=== PATIENT | male | born 1980 | race Two or more races ===

== ENCOUNTER 2023-04-02 21:56 | Emergency (ER) | payer OTHER | END 2023-04-02 22:19 | disposition left against medical advice (07) | LOC: ER 21:56 | DX: M79.641 Pain in right hand (principal); Z53.21 Procedure and treatment not carried out due to patient leaving prior to being seen by health care provider ==

== ENCOUNTER 2024-06-11 16:45 | Inpatient (IN) | payer OTHER ==
[~2024-06-11] VITALS: Ht 177.8 cm; Wt 117.2 kg
--- NOTE | 2024-06-11 17:28 | DVH ---
CHEST RADIOGRAPH Indication: cp Technique: Single frontal view of the chest was obtained Comparison: None FINDINGS: Lines and Tubes: None Lungs: No focal consolidation. Mild interstitial prominence. Pleura: No effusion. No pneumothorax. Cardiomediastinal contours: Mild cardiomegaly. Bones: No acute osseous abnormality. IMPRESSION: Mild cardiomegaly with mild pulmonary vascular congestion.
--- NOTE | 2024-06-11 17:37 | ED.PDOC ---
History of Present Illness HPI Comments 43M presents to the ER w/ no prior Hx associated to the c/c of of dizziness. Pt reports that he was getting dizzy when he was walking at [facility] and then started to have CP. Pt notes that he has seen his PCP prior due from having constant dizziness w/ a hemoglobin of 6. Pt states that he has generalized weakness associated w/ ABD pain, black stools for a "couple days". Pt notes that he cannot have a blood transfer due from him being a Jehovah Witness. Quit alcohol use, 2 weeks ago. Denies chills, fever, N/V/D, SOB, CP or other associated symptom's, modifiers, or recent injuries or sick contact at this time. Chief Complaint: Chest Pain Time Seen by MD: 17:00 Primary Care Provider: MICHELLE Torres Notes: Nurses Notes, Medications, Allergies Allergies: Coded Allergies: NO KNOWN ALLERGIES (Unverified , 06/11/24) Information Source: Patient, Emergency Med Personnel Mode of Arrival: EMS Severity: Moderate Timing: Minutes Duration: Since onset, Minutes Prehospital treatment: None Past Medical History PAST MEDICAL HISTORY: Denies Surgical History: Denies all surgeries Family History Family History: Reviewed,noncontributory to illness, Unknown Social History Smoker: Non-Smoker Alcohol: Sober Drugs: Denies Drug Use Lives In: Home Constitutional: denies: chills, diaphoresis, fatigue, fever, malaise, sweats, weakness, others EENTM: denies: blurred vision, double vision, ear bleeding, ear discharge, ear drainage, ear pain, ear ringing, eye pain, eye redness, hearing loss, mouth p ain, mouth swelling, nasal discharge, nose bleeding, nose congestion, nose pain, photophobia, tearing, throat pain, throat swelling, voice changes, others Respiratory: denies: cough, hemoptysis, orthopnea, SOB at rest, shortness of br eath, SOB with excertion, stridor, wheezing, others Cardiovascular: reports: chest pain; denies: dizzy spells, diaphoresis, Dyspnea on exertion, edema, irregular heart beat, left arm pain, lightheadedness, palpitations, PND, syncope, others Gastrointestinal: denies: abdomen distended, abdominal pain, blood streaked con wels, constipated, diarrhea, dysphagia, difficulty swallowing, hematemesis, melena, nausea, poor appetite, poor fluid intake, rectal bleeding, rectal pain, vomiting, others Genitourinary: denies: burning, dysuria, flank pain, frequency, hematuria, incontinence, penile discharge, penile sore, pain, testicle pain, testicle swelling, urgency, others Neurological: reports: dizziness; denies: fainting, headache, left sided numbness, left sided weakness, numbness, paresthesia, pre-existing deficit, right sided numbness, right sided weakness, seizure, speech problems, tingling, tremors, weakness, others Musculoskeletal: denies: back pain, gout, joint pain, joint swelling, muscle pain, muscle stiffness, neck pain, others Integumetry: denies: bruises, change in color, change in hair/nails, dryness, laceration, lesions, lumps, rash, wounds, others Allergic/Immunocompromised: denies: Difficulty Healing, Frequent Infections, Hives, Itching, others Hematologic/Lymphatic: denies: anemia, blood clots, easy bleeding, easy bruising, swollen glands, others Endocrine: denies: excessive hunger, excessive sweating, excessive thirst, excessive urination, flushing, intolerance to cold, intolerance to heat, unexplained weight gain, unexplained weight loss, others Psychiatric: denies: anxiety, bipolar disorder, depression, hopeless, panic dis order, schizophrenia, sleepless, suicidal, others All Other Systems: Reviewed and Negative Physical Exam General Appearance: No Apparent Distress, Normal HEENT: Normal ENT Inspection, Pharynx Normal, TMs Normal Neck: Full Range of Motion, Non-Tender, Normal, Normal Inspection Respiratory: Chest Non-Tender, Lungs Clear, No Accessory Muscle Use, No Respiratory Distress, Normal Breath Sounds Cardiovascular: No Edema, No JVD, No Murmur, No Gallop, Normal Peripheral Pulses, Regular Rate/Rhythm Breast Exam: Deferred Gastrointestinal: No Organomegaly, Non Tender, No Pulsatile Mass, Normal Bowel Sounds, Soft Genitalia: Deferred Pelvic: Deferred Rectal: Deferred Extremities: No calf tenderness, Normal capillary refill, Normal inspection, Normal range of motion, Non-tender, No pedal edema Musculoskeletal : Apperance: Normal Neurologic: Alert, tank pumper panelboard II-XII nml as Tested, No Motor Deficits, Normal Affect, Normal Mood, No Sensory Deficits Cerebellar Function: Normal Reflexes: Normal Skin: Dry, Normal Color, Warm Lymphatic: No Adenopathy Was a procedure done? Was a procedure done?: No Differential Dx Considerations may include: gib, marrow failure, unstable angina, demand related angina, noncardiac chest pain, anxiety X-Ray, Labs, Meds, VS Vital Signs Date Time Temp Pulse Resp B/P (MAP) Pulse Ox O2 Delivery O2 Flow Rate FiO2 06/11/24 17:51 83 16 100 Room Air* 0 21 06/11/24 17:35 98.9 83 16 134/64 (87) 100 98.9 06/11/24 17:35 83 16 100 Room Air 06/11/24 17:05 97.2 86 16 124/72 (89) 99 Lab Test 06/11/24 18:17 06/11/24 17:22 Range/Units Troponin I High Sensitivity < 3 L < 3 L </=54 ng/L White Blood Count 4.4 4.4-10.8 10^3/uL Red Blood Count 3.69 L 4.5-5.90 10^6/uL Hemoglobin 6.8 *L 13.5-17.5 g/dL Hematocrit 23.1 L 41.0-53.0 % Mean Corpuscular Volume 62.8 L 80.0-100.0 fL Mean Corpuscular Hemoglobin 18.4 L 28.0-32.0 pg Mean Corpuscular Hemoglobin Concent 29.3 L 32.0-36.0 g/dL Red Cell Distribution Width 19.1 H 11.8-14.3 % Platelet Count 369 140-450 10^3/uL Mean Platelet Volume 8.7 6.9-10.8 fL Neutrophils (%) (Auto) 53.7 37.0-80.0 % Lymphocytes (%) (Auto) 32.4 10.0-50.0 % Monocytes (%) (Auto) 10.8 0.0-12.0 % Eosinophils (%) (Auto) 1.8 0.0-7.0 % Basophils (%) (Auto) 1.3 0.0-2.0 % Neutrophils # (Auto) 2.3 1.6-8.6 10 ^3/uL Lymphocytes # (Auto) 1.4 0.4-5.4 10 ^3/uL Monocytes # (Auto) 0.5 0-1.3 10 ^3/uL Eosinophils # (Auto) 0.1 0-0.8 10 ^3/uL Basophils # (Auto) 0.1 0-0.2 10 ^3/uL Nucleated Red Blood Cells 0.0 % Platelet Estimate [place] Large Platelets Few Polychromasia Slight Hypochromasia (manual) Moderate Poikilocytosis (manual) Slight Anisocytosis (manual) Slight Microcytosis Moderate Ovalocytes Few Stomatocytes Few Current Medications Medications (Trade) Dose Ordered Sig/Sadie Route Start Time Stop Time Status Last Admin Pantoprazole Sodium (Protonix) 40 mg ONCE ONCE IV 06/11/24 17:15 06/11/24 17:16 DC 06/11/24 17:46 Time of 1ST Reevaluation: 17:30 Reevaluation 1ST: Unchanged Patient Education/Counseling: Diagnosis, Treatment, Prognosis, Need For Follow Up Family Education/Counseling: Diagnosis, Treatment, Prognosis, Need For Follow Up, No Family Present Additional Information - The following tests were ordered, and results were reviewed by me: LAB, CT , EKG - I reviewed and agreed with the following test results read by other provider: CT - I discussed treatments and results with medical personnel and: (consultants, family): [facility] pt is JW and was told his Hg was 6.5 a week ago. he did notice black stool 2 d ays before starting iron therapy. pt now has angina-type chest pain, which may be related to the anemia. his Hg is slightly higher than a week ago, and he does not have active bleed. however, the anemia may be the trigger of the angina. i will consult [facility] regarding their bloodless program and pt will need to be evaluated for the angina. [facility] does not have a bloodless program anymore. we also tried [facility] and [facility], the other 2 facilities [facility] bloodless program, but have not been able to get acceptance. since pt has stable hg from last week, and has no active bleeding, he will be admitted for angina workup, and if bloodless treatment for the anemia is needed, he may be able to get EPO and iron here as well Departure 1 Departure Time of Disposition: 18:13 Impression: Primary Impression: Unstable angina Additional Impression: Anemia Qualified Codes: D50.0 - Iron deficiency anemia secondary to blood loss (chronic) Disposition: ADMITTED INPATIENT Admit to: Tele Condition: Stable Discharged With: Self, Relative Critical Care Note Critical Care Time?: Yes (55 min-critical care time only) Critical care comment: due to concerns for deterioration of patient's condition, the care required my highest level of attention and readiness. i assessed the patient's condition, revieweed relavent documents, communicated with medical personnel, ordered the proper tests and treatments, reassed fro results and response to treatments, spoke to family and consultants and formulated a plan of care Stability Stability form required: No Heart Score Heart Score: Heart Score Response (Comments) Value History Highly Suspicious 2 EKG Normal 0 Age <45 0 Risk Factors No known risk factors 0 Troponin Normal limit 0 Total 2 I personally scribed for MAVERICK TRINH MD ([email or web address]) on 06/11/24 at 17:37. Electronically submitted by Baron Penaloza ([email or web address]). MAVERICK TRINH MD Jun 11, 2024 17:37
[2024-06-11] MEDS: PANTOPRAZOLE 40 MG/10 ML VIAL INJ IV ONE (17:46)
[2024-06-11 17:50] LABS: Eosinophils # (auto) 0.1 10 ^3/uL (0-0.8); Lymphocytes # (auto) 1.4 10 ^3/uL (0.4-5.4); Mean Corpuscular Hemoglobin 18.4 pg (28.0-32.0); Monocytes # (auto) 0.5 10 ^3/uL (0-1.3)
[2024-06-11 17:51] VITALS: PULSE 83; RESP 16; O2SAT 100
[2024-06-11 17:53] LABS: Basophils # (auto) 0.1 10 ^3/uL (0-0.2); Basophils % (auto) 1.3 % (0.0-2.0); Eosinophils % (auto) 1.8 % (0.0-7.0); Hematocrit 23.1 % (41.0-53.0); Lymphocytes % (auto) 32.4 % (10.0-50.0); Mean Corpuscular Hgb Conc. 29.3 g/dL (32.0-36.0); Mean Corpuscular Volume 62.8 fL (80.0-100.0); Monocytes % (auto) 10.8 % (0.0-12.0); Neutrophils # (auto) 2.3 10 ^3/uL (1.6-8.6); Neutrophils % (auto) 53.7 % (37.0-80.0); Platelet Count (auto) 369 10^3/uL (140-450); Red Blood Cells 3.69 10^6/uL (4.5-5.90); Red Cell Distribution Width 19.1 % (11.8-14.3); White Blood Cell 4.4 10^3/uL (4.4-10.8)
[2024-06-11 18:00] LABS: Hemoglobin 6.8 g/dL (13.5-17.5)
[2024-06-11 18:14] LABS: Anisocytosis Slight; Hypochromia Moderate; Polychromasia Slight
[2024-06-11 18:15] LABS: Large Platelets FEW; Ovalocytes FEW; Platelet Estimate Adequa; Stomatocytes Few
--- NOTE | 2024-06-11 18:49 | ECG ---
[facility] Test Date: 2024-06-11 Test Time: 16:48:19 Pat Name: REYES DAVIS Department: ER Room: Gender: M Electrician Manager: SANTI : 1980 Requested By: MAVERICK TRINH Order Number: [id number] Reading MD: Rayo Rocha Measurements Intervals [place] Rate: 80 P: 42 SC: 162 QRS: -43 QRSD: 98 T: 32 QT: 402 QTc: 464 Interpretive Statements Sinus rhythm Left axis deviation Electronically Signed On 06-11-2024 20:00:17 PST by Rayo Rocha Please click the below link to view image of tracing.
[2024-06-11] MEDS ORDERED: ACETAMINOPHEN 325 MG TAB PO PRN (20:15)
[2024-06-11] MEDS ORDERED: ONDANSETRON HCL 4 MG/2 ML VIAL IV PRN (20:15)
[2024-06-11] MEDS: SODIUM CHLORIDE 0.9% 1,000 ML IV SCH (20:26)
[2024-06-11 20:47] LABS: Alanine Aminotransferase 49 U/L (7-40); Albumin 5.2 g/dL (3.2-4.8); Alkaline Phosphatase 65 U/L (46-116); Anion Gap 12 (5-15); Aspartate Aminotransferase 25 U/L (13-40); BUN/Creatinine Ratio 17.6 (10.0-20.0); Bilirubin, Total 0.5 mg/dL (0.2-1.0); Blood Urea Nitrogen 19 mg/dL (9-23); Calcium 10.3 mg/dL (8.7-10.4); Carbon Dioxide 20 mmol/L (20-31); Chloride 107 mmol/L (98-107); Glucose 109 mg/dL (74-106); Potassium 3.8 mmol/L (3.5-5.1); Sodium 139 mmol/L (136-145); Total Protein 7.9 g/dL (5.7-8.2)
--- NOTE | 2024-06-11 21:42 | DVHHP2 ---
History of Present Illness Reason for Visit: Severe anemia History of Present Illness The patient is a 43-year-old male who denies past medical history presented to [facility] ED with complaint of dizziness. Patient reports he has been having dizzy when walking, associated chest pain, generalized weakness, getting worse that prompted this visit. Patient was seen and evaluated in the ED, laboratory data shows WBC 4.4, hemoglobin 6.8, hematocrit 23.1, platelets 369, troponin 3, blood pressure 121/60, heart rate 75, temperature 98.8 F, O2 saturation 97% on room air. Chest x-ray revealing mild cardiomegaly with mild pulmonary vascular congestion. Patient states he is a Jehovah Witness and cannot receive blood products. Patient was started on iron IV, please see medication orders section in the computer. On my assessment, patient denied chest pain, no headache, no dizziness, no diaphoresis, no shortness of breaths, no nausea, no vomiting, no fever, no chills. Patient was admitted for further evaluation and medical management. Past Medical History Denies past medical history Past Surgical History Denies all surgeries Family History Reviewed, noncontributory to the management of this case. Past Social History The patient lives at home, denies smoking, alcohol or illicit drugs abuse. Review of Systems Constitutional: Yes: Weakness; No: Fever, Chills, Sweats, Malaise, Other Eyes: No: Pain, Vision change, Conjunctivae inflammation, Eyelid inflammation, Other, Redness ENT: No: Ear pain, Ear discharge, Nose pain, Nose discharge, Nose congestion, Mouth pain, Mouth swelling, Throat pain, Throat swelling, Other Respiratory: No: Cough, Dry, Shortness of breath, SOB with excertion, Wheezing, Hemoptysis, Pleuritic Pain, Sputum, Wheezing, Other Cardiovascular: Chest Pain; No: Palpitations, Orthopnea, Paroxysmal Noc. Dyspnea, Edema, Lt Headedness, Other Gastrointestinal: No: Nausea, Vomiting, Abdominal Pain, Diarrhea, Constipation, Melena, Hematochezia, Other Genitourinary: No Dysuria, No Frequency, No Incontinence, No Hematuria, No Retention, No Other Musculoskeletal: No: other, neck pain, shoulder pain, arm pain, back pain, hand pain, leg pain, foot pain Skin: No: Rash, Lesions, Jaundice, Bruising, Other Neurological: Other (Dizziness); No: Weakness, Numbness, Incoordination, Change in speech, Confusion, Seizures Allergies: Coded Allergies: NO KNOWN ALLERGIES (Unverified , 06/11/24) Medications Current Medications Medications Dose Ordered Sig/Sadie Route Start Time Stop Time Status Last Admin Dose Admin Pantoprazole Sodium 40 mg DAILY IV 06/12/24 10:00 Aspirin 81 mg DAILY PO 06/12/24 10:00 Sodium Chloride 1,000 ml @ 60 mls/hr [id number] IV 06/11/24 20:15 06/11/24 20:26 60 MLS/HR Acetaminophen/ Hydrocodone Bitart 1 tab Q4HP PRN PO 06/11/24 20:15 Ondansetron HCl 4 mg Q4HP PRN IV 06/11/24 20:15 Docusate Sodium 100 mg BIDPRN PRN PO 06/11/24 20:15 Acetaminophen 650 mg Q6HP PRN PO 06/11/24 20:15 Morphine Sulfate 2 mg Q4HPRN PRN IV 06/11/24 20:15 Exam Vital Signs Vital Signs Date Time Temp Pulse Resp B/P (MAP) Pulse Ox O2 Delivery O2 Flow Rate FiO2 06/11/24 20:00 80 06/11/24 20:00 98.5 10 121/60 (80) 97 98.5 06/11/24 17:51 Room Air* 0 21 General Appearance: Alert, Oriented X3, Cooperative, No acute distress HEENT: Atraumatic, PERRLA, EOMI, Mucous membr. moist/pink Respiratory: Clear to auscultation, Normal air movement Cardiovascular: Regular rate, Normal S1, Normal S2, No murmurs Abdominal: Normal bowel sounds, Soft, No tenderness, No hepatospenomegaly, No masses Extremities: No clubbing, No cyanosis, No edema, Normal pulses, No tenderness/swelling Skin: No rashes, No breakdown, No significant lesion Neuro: Normal gait, Normal speech, Strength at 5/5 X4 ext, Normal tone, Sensation intact, Cranial nerves 3-12 NL, Reflexes 2+ Psych/Mental Status: Mental status NL, Mood NL Labs/Xrays Labs Test 06/11/24 18:17 06/11/24 17:22 Range/Units Troponin I High Sensitivity < 3 L </=54 ng/L White Blood Count 4.4 4.4-10.8 10^3/uL Red Blood Count 3.69 L 4.5-5.90 10^6/uL Hemoglobin 6.8 *L 13.5-17.5 g/dL Hematocrit 23.1 L 41.0-53.0 % Mean Corpuscular Volume 62.8 L 80.0-100.0 fL Mean Corpuscular Hemoglobin 18.4 L 28.0-32.0 pg Mean Corpuscular Hemoglobin Concent 29.3 L 32.0-36.0 g/dL Red Cell Distribution Width 19.1 H 11.8-14.3 % Platelet Count 369 140-450 10^3/uL Mean Platelet Volume 8.7 6.9-10.8 fL Neutrophils (%) (Auto) 53.7 37.0-80.0 % Lymphocytes (%) (Auto) 32.4 10.0-50.0 % Monocytes (%) (Auto) 10.8 0.0-12.0 % Eosinophils (%) (Auto) 1.8 0.0-7.0 % Basophils (%) (Auto) 1.3 0.0-2.0 % Neutrophils # (Auto) 2.3 1.6-8.6 10 ^3/uL Lymphocytes # (Auto) 1.4 0.4-5.4 10 ^3/uL Monocytes # (Auto) 0.5 0-1.3 10 ^3/uL Eosinophils # (Auto) 0.1 0-0.8 10 ^3/uL Basophils # (Auto) 0.1 0-0.2 10 ^3/uL Nucleated Red Blood Cells 0.0 % Platelet Estimate [place] Large Platelets Few Polychromasia Slight Hypochromasia (manual) Moderate Poikilocytosis (manual) Slight Anisocytosis (manual) Slight Microcytosis Moderate Ovalocytes Few Stomatocytes Few Sodium Level 139 136-145 mmol/L Potassium Level 3.8 3.5-5.1 mmol/L Chloride Level 107 98-107 mmol/L Carbon Dioxide Level 20 20-31 mmol/L Anion Gap 12 5-15 Blood Urea Nitrogen 19 9-23 mg/dL Creatinine 1.08 0.700-1.30 mg/dL Glomerular Filtration Rate Calc 88 >90 mL/min BUN/Creatinine Ratio 17.6 10.0-20.0 Serum Glucose 109 H 74-106 mg/dL Calcium Level 10.3 8.7-10.4 mg/dL Total Bilirubin 0.5 0.2-1.0 mg/dL Aspartate Amino Transferase (AST) 25 13-40 U/L Alanine Aminotransferase (ALT) 49 H 7-40 U/L Alkaline Phosphatase 65 46-116 U/L Total Protein 7.9 5.7-8.2 g/dL Albumin 5.2 H 3.2-4.8 g/dL PATIENT: REYES DAVIS ACCT: [id number] UNIT: [id number] : 1980 LOC: ER ROOM / BED: / AGE / SEX: 43 / M ADM STATUS: REG ER SERVICE [id number] ORDERING PHYSICIAN: MAVERICK TRINH MD PROCEDURE(s): CXRP - CHEST PORTABLE REASON: cp ORDER NUMBER(s): [id number], ACCESSION NUMBER(s): [id number] CHEST RADIOGRAPH Indication: cp Technique: Single frontal view of the chest was obtained Comparison: None FINDINGS: Lines and Tubes: None Lungs: No focal consolidation. Mild interstitial prominence. Pleura: No effusion. No pneumothorax. Cardiomediastinal contours: Mild cardiomegaly. Bones: No acute osseous abnormality. IMPRESSION: Mild cardiomegaly with mild pulmonary vascular congestion. Assessment/Plan Assessment/Plan Severe anemia Generalized weakness Unstable angina Iron deficiency anemia secondary to blood loss (chronic) Plan 1. Admit to telemetry unit 2. Breathing treatment 3. Pain control management 4. Management of fluids and electrolytes 5. Consultation for hospitalist 6. Diagnostic tests chest x-ray 7. DVT prophylaxis on SCDs 8. Repeat labs CBC, CMP in a.m. 9. Continue with current medical management 10. Treatment plan discussed with patient and RN. Patient verbalized understanding. Plan discussed with: Patient, Other (RN) My Orders Orders - SEJAL MEZA DNP Procedure Category Date Status Time Type And Screen BBK 06/11/24 In Process 20:14 Pantoprazole PHA 06/12/24 In Process (Protonix) 10:00 Aspirin Tablet PHA 06/12/24 In Process 10:00 Allergies AMA 06/11/24 In Process 20:14 Code Status CODE 06/11/24 Transmitted 20:14 Sodium Chloride 0.9% PHA 06/11/24 In Process 20:15 Oxygen Per Hour RT 06/11/24 Transmitted 20:14 Hydrocodone-Acet PHA 06/11/24 In Process 5/325mg Tab ([place] 20:15 Ondansetron Hcl PHA 06/11/24 In Process (Zofran) 20:15 Docusate Sodium PHA 06/11/24 In Process Capsule (Colace 20:15 Complete Blood Count LAB 06/12/24 Verified 04:00 Comprehensive LAB 06/12/24 Verified Metabolic Panel 04:00 Cardiac DIET 06/12/24 Transmitted Diet-2gna,Lofat,Lochol Breakfast Condition: Serious AMA 06/11/24 In Process 20:14 Acetaminophen Tablet PHA 06/11/24 In Process (Tylenol Tablet) 20:15 Bedrest With Bathroom AMA 06/11/24 In Process Privileg 20:14 Morphine Sulfate PHA 06/11/24 In Process Injection 20:15 Sequential AMA 06/11/24 In Process Compression Device Problem List: (1) Severe anemia (2) Generalized weakness (3) Unstable angina (4) Iron deficiency anemia secondary to blood loss (chronic) Date of Service: Jun 11, 2024 Billing Provider: SEJAL MEZA DNP Common Visit Codes: [id number] INP/OBS CARE (HIGH) SEJAL MEZA DNP Jun 11, 2024 21:42
[2024-06-11] MEDS ORDERED: MORPHINE SULFATE INJ 2 MG/ml SYRG IV PRN (21:45)
[2024-06-11] MEDS ORDERED: NITROGLYCERIN 0.4 MG SL TAB SL PRN (21:45)
[2024-06-11 22:07] VITALS: PULSE 80; RESP 12; O2SAT 99
[2024-06-12] VITALS (8 sets, daily range): BP systolic 104–146; BP diastolic 57–78; PULSE 61–81; RESP 16–20; TEMP 97.5–98.8; O2SAT 97–100
[2024-06-12 04:18] LABS: Eosinophils # (auto) 0.1 10 ^3/uL (0-0.8); Lymphocytes % (auto) 34.4 % (10.0-50.0); Monocytes # (auto) 0.5 10 ^3/uL (0-1.3); Neutrophils % (auto) 50.2 % (37.0-80.0); Nucleated Red Blood Cells % 0.3 %; White Blood Cell 3.9 10^3/uL (4.4-10.8)
[2024-06-12 04:23] LABS: Basophils # (auto) 0.1 10 ^3/uL (0-0.2); Basophils % (auto) 1.5 % (0.0-2.0); Lymphocytes # (auto) 1.3 10 ^3/uL (0.4-5.4); Mean Corpuscular Hemoglobin 18.4 pg (28.0-32.0); Mean Corpuscular Hgb Conc. 28.8 g/dL (32.0-36.0); Mean Corpuscular Volume 63.7 fL (80.0-100.0); Monocytes % (auto) 11.9 % (0.0-12.0); Platelet Count (auto) 297 10^3/uL (140-450); Red Blood Cells 3.76 10^6/uL (4.5-5.90); Red Cell Distribution Width 19.2 % (11.8-14.3)
[2024-06-12 04:27] LABS: Hemoglobin 6.9 g/dL (13.5-17.5)
[2024-06-12 04:37] LABS: Alkaline Phosphatase 58 U/L (46-116); Anion Gap 9 (5-15); Aspartate Aminotransferase 31 U/L (13-40); BUN/Creatinine Ratio 15.2 (10.0-20.0); Blood Urea Nitrogen 15 mg/dL (9-23); Calcium 9.8 mg/dL (8.7-10.4); Carbon Dioxide 21 mmol/L (20-31); Potassium 4.2 mmol/L (3.5-5.1); Sodium 138 mmol/L (136-145); Total Protein 7.5 g/dL (5.7-8.2)
[2024-06-12 04:38] LABS: Alanine Aminotransferase 42 U/L (7-40); Albumin 4.8 g/dL (3.2-4.8); Chloride 108 mmol/L (98-107); Glucose 113 mg/dL (74-106)
[2024-06-12 04:39] LABS: Bilirubin, Total 0.5 mg/dL (0.2-1.0)
[2024-06-12 05:22] LABS: Hypochromia Marked; Platelet Estimate Adequate; Polychromasia Slight
[2024-06-12] MEDS ORDERED: ERGO1CAP12 PO (05:28)
[2024-06-12] MEDS ORDERED: FERR325T20 PO (05:28)
[2024-06-12] MEDS: ASPirin 81 mg TAB PO SCH (09:11)
[2024-06-12] MEDS: PANTOPRAZOLE 40 MG/10 ML VIAL INJ IV SCH (09:11)
[2024-06-12] MEDS: IRON SUCROSE COMPLEX 110 ML IV SCH (12:15)
[2024-06-12] MEDS: MORPHINE SULFATE INJ 2 MG/ml SYRG IV PRN (12:41)
[2024-06-12] MEDS: DOCUSATE SOD 100 MG CAP PO PRN (19:40)
--- NOTE | 2024-06-12 20:16 | DVHPN2 ---
Subjective in bed resting Changes from previous H/P or p: No Changes Eyes: No Pain, No Vision change, No Conjunctivae inflammation, No Eyelid inflammation, No Other, No Redness ENT: No Ear pain, No Ear discharge, No Nose pain, No Nose discharge, No Nose congestion, No Mouth pain, No Mouth swelling, No Throat pain, No Throat swelling, No Other Cardiovascular: Chest Pain; No Palpitations, No Orthopnea, No Paroxysmal Noc. Dyspnea, No Edema, No Lt Headedness, No Other Respiratory: No Cough, No Dry, No Shortness of breath, No SOB with excertion, No Wheezing, No Hemoptysis, No Pleuritic Pain, No Sputum, No Other Gastrointestinal: No Nausea, No Vomiting, No Abdominal Pain, No Diarrhea, No Constipation, No Melena, No Hematochezia, No Other Genitourinary: No Dysuria, No Frequency, No Incontinence, No Hematuria, No Retention, No Other Musculoskeletal: No other, No neck pain, No shoulder pain, No arm pain, No back pain, No hand pain, No leg pain, No foot pain Skin: No Rash, No Lesions, No Jaundice, No Bruising, No Other Objective Vitals Vital Signs Date Time Temp Pulse Resp B/P (MAP) Pulse Ox O2 Delivery O2 Flow Rate FiO2 06/12/24 17:00 97.8 61 18 124/74 (91) 97 97.8 06/12/24 08:00 Room Air* 0 21 Intake/Output Intake and Output 06/12/24 05:00 Intake Total 420 ml Balance 420 ml IV Total 420 ml General Appearance: Alert, Oriented X3 Lungs: Clear to auscultation Cardiovascular: Regular rate, Normal S1, Normal S2 Medications Current Medications Medications Dose Ordered Sig/Sadie Route Start Time Stop Time Status Last Admin Dose Admin Pantoprazole Sodium 40 mg DAILY IV 06/12/24 10:00 06/12/24 09:11 40 MG Aspirin 81 mg DAILY PO 06/12/24 10:00 06/12/24 09:11 81 MG Sodium Chloride 1,000 ml @ 60 mls/hr [id number] IV 06/11/24 20:15 06/12/24 13:08 60 MLS/HR Acetaminophen/ Hydrocodone Bitart 1 tab Q4HP PRN PO 06/11/24 20:15 Ondansetron HCl 4 mg Q4HP PRN IV 06/11/24 20:15 Docusate Sodium 100 mg BIDPRN PRN PO 06/11/24 20:15 06/12/24 19:40 100 MG Acetaminophen 650 mg Q6HP PRN PO 06/11/24 20:15 Morphine Sulfate 2 mg Q4HPRN PRN IV 06/11/24 20:15 06/12/24 12:41 2 MG Nitroglycerin 0.4 mg Q5MINP PRN SL 06/11/24 21:45 Morphine Sulfate 2 mg Q30M PRN IV 06/11/24 21:45 Iron Sucrose 110 ml @ 110 mls/hr DAILY@1200 IV 06/12/24 12:00 06/16/24 12:59 06/12/24 12:15 110 MLS/HR Laboratory Results Laboratory Tests 06/12/24 03:57 Chemistry Test 06/12/24 03:57 Albumin 4.8 g/dL (3.2-4.8) Calcium Level 9.8 mg/dL (8.7-10.4) Total Protein 7.5 g/dL (5.7-8.2) LFT Test 06/12/24 03:57 Alanine Aminotransferase (ALT) 42 U/L (7-40) H Alkaline Phosphatase 58 U/L (46-116) Aspartate Amino Transferase (AST) 31 U/L (13-40) Total Bilirubin 0.5 mg/dL (0.2-1.0) Assessment/Plan Assessment/Plan Severe anemia Generalized weakness Unstable angina Iron deficiency anemia secondary to blood loss (chronic) Plan Getting iron infusion He is Jehovas witness and cannot have blood products GI consult today Plan discussed with: Patient My Orders Orders - TIFFANIE YOST MD Procedure Category Date Status Time * Gi Dvh Groundskeeping Maintenance CONS 06/12/24 Transmitted 11:17 Date of Service: Jun 12, 2024 Billing Provider: TIFFANIE YOST MD Common Visit Codes: [id number] INP/OBS CARE(HIGH) TIFFANIE YOST MD Jun 12, 2024 20:16
[2024-06-13] VITALS (9 sets, daily range): BP systolic 95–118; BP diastolic 50–69; PULSE 56–79; RESP 18–19; TEMP 97.9–98.3; O2SAT 92–98
--- NOTE | 2024-06-13 11:28 | DVHPN2 ---
Subjective The patient seen and examined at bedside. No dizziness or syncope today. Reviewed: Care Plan, H&P, Labs, Medications, Previous Orders, Radiology Changes from previous H/P or p: No Changes Eyes: No Pain, No Vision change, No Conjunctivae inflammation, No Eyelid inflammation, No Other, No Redness ENT: No Ear pain, No Ear discharge, No Nose pain, No Nose discharge, No Nose congestion, No Mouth pain, No Mouth swelling, No Throat pain, No Throat swelling, No Other Cardiovascular: Chest Pain; No Palpitations, No Orthopnea, No Paroxysmal Noc. Dyspnea, No Edema, No Lt Headedness, No Other Respiratory: No Cough, No Dry, No Shortness of breath, No SOB with excertion, No Wheezing, No Hemoptysis, No Pleuritic Pain, No Sputum, No Other Gastrointestinal: No Nausea, No Vomiting, No Abdominal Pain, No Diarrhea, No Constipation, No Melena, No Hematochezia, No Other Genitourinary: No Dysuria, No Frequency, No Incontinence, No Hematuria, No Retention, No Other Musculoskeletal: No other, No neck pain, No shoulder pain, No arm pain, No back pain, No hand pain, No leg pain, No foot pain Skin: No Rash, No Lesions, No Jaundice, No Bruising, No Other Objective Vitals Vital Signs Date Time Temp Pulse Resp B/P (MAP) Pulse Ox O2 Delivery O2 Flow Rate FiO2 06/13/24 09:00 97.9 67 18 100/60 (73) 92 97.9 06/12/24 19:40 Room Air* 0 21 Intake/Output Intake and Output 06/13/24 07:00 Intake Total 1840 ml Output Total 200 ml Balance 1640 ml Intake Oral 1840 ml Output Urine Total 200 ml # Voids 4 # Bowel Movements 1 General Appearance: Alert, Oriented X3, Cooperative, No acute distress HEENT: Atraumatic, PERRLA, EOMI, Mucous membr. moist/pink Neck: Supple Lungs: Clear to auscultation Cardiovascular: Regular rate, Normal S1, Normal S2, No murmurs, Gallops, Rubs Abdomen: Normal bowel sounds, Soft Extremities: Normal pulses Neuro: Cranial nerves 3-12 NL Psych/Mental Status: Mental status NL Medications Current Medications Medications Dose Ordered Sig/Sadie Route Start Time Stop Time Status Last Admin Dose Admin Pantoprazole Sodium 40 mg DAILY IV 06/12/24 10:00 06/13/24 11:07 40 MG Aspirin 81 mg DAILY PO 06/12/24 10:00 06/13/24 11:07 81 MG Sodium Chloride 1,000 ml @ 60 mls/hr [id number] IV 06/11/24 20:15 06/12/24 13:08 60 MLS/HR Acetaminophen/ Hydrocodone Bitart 1 tab Q4HP PRN PO 06/11/24 20:15 Ondansetron HCl 4 mg Q4HP PRN IV 06/11/24 20:15 Docusate Sodium 100 mg BIDPRN PRN PO 06/11/24 20:15 06/12/24 19:40 100 MG Acetaminophen 650 mg Q6HP PRN PO 06/11/24 20:15 Morphine Sulfate 2 mg Q4HPRN PRN IV 06/11/24 20:15 06/12/24 12:41 2 MG Nitroglycerin 0.4 mg Q5MINP PRN SL 06/11/24 21:45 Morphine Sulfate 2 mg Q30M PRN IV 06/11/24 21:45 Iron Sucrose 110 ml @ 110 mls/hr DAILY@1200 IV 06/12/24 12:00 06/16/24 12:59 06/13/24 11:07 110 MLS/HR Laboratory Results Laboratory Tests 06/12/24 03:57 Labs and/or images reviewed: Labs reviewed by me Assessment/Plan Assessment/Plan Severe anemia Generalized weakness Unstable angina Iron deficiency anemia secondary to blood loss (chronic) Plan Continuing current management. Continuing with iron infusions. Waiting for GI specialist to see the patient. I also called and discussed with risk control director, , she will see the patient The patient is Jehovah Witness and can not receive blood transfusions. We will monitor hemoglobin This medical document was created using an electronic medical record system with M*[employer] direct computerized dictation system. Although this document has been carefully reviewed, there may still be some phonetic and typographical errors. These areas are purely typographical due to imperfections of the software programs, and do not reflect any compromise in the patient's medical care. Plan discussed with: Patient, Other (Dr Horan) Date of Service: Jun 13, 2024 Billing Provider: NOREEN REYNOLDS MD Common Visit Codes: [id number] INP/OBS CARE(HIGH) NOREEN REYNOLDS MD Jun 13, 2024 11:28
--- NOTE | 2024-06-13 16:21 | DVHCONRES ---
Date Seen: Jun 13, 2024 Resident Creating Document: KEEGAN MCLEAN RESIDENT Referring Physician Dr. Blackwell Reason for Consultation Severe anemia History of Present Illness This is a 41 years old male without significant past medical history and Jehovah Witness presented to the ED with a chief complaint of dizziness, shortness of breath and chest pain since morning prior to this admission. Patient stated that when he was doing grocery in [facility] he was feeling dizzy, shortness of breath, epigastric pain which was continuous, 8/10, localized without any nausea and vomiting and his recent blood work with his PCP mentioned he has low hemoglobin but as because he is Jehovah Witness preferred iron pill instead of blood transfusion. The patient also mentioned he was taking ibuprofen 800 mg p.r.n. for left shoulder pain for last couple of weeks. Patient denies hematemesis, melena, blood in his stool or any change in bowel and bladder habit. ED hemoglobin was 6.8 and hematocrit 23.1, troponins were unremarkable and patient was saturating 97% on room air. Chest x-ray revealed mild cardiomegaly with mild pulmonary vascular congestion. The patient started on IV iron in ED Patient was seen and examined on the bedside. He is alert oriented x3. Mentioned improvement of dizziness and denied any hematemesis, blood in stool or melena. No other active complaint Past Medical History None Past Surgical History None Allergies: Coded Allergies: NO KNOWN ALLERGIES (Unverified , 06/11/24) Home Meds Reported Medications Ferrous Sulfate (Ferosul) 325 Mg Tab, 1 TAB PO BID 06/12/24 Ergocalciferol (Vitamin D) 50,000 Unit Cap, 1 CAP PO QWEEKLY 06/12/24 Vital Signs Vital Signs Date Time Temp Pulse Resp B/P (MAP) Pulse Ox O2 Delivery O2 Flow Rate FiO2 06/13/24 13:00 98.2 64 18 118/69 (85) 98 98.2 06/12/24 19:40 Room Air* 0 21 Physical Exam Physical examination: General Appearance: Alert, Oriented X3, Cooperative, No acute distress HEENT: Atraumatic, PERRLA, EOMI, Mucous membrane pale Respiratory: Clear to auscultation, Normal air movement Cardiovascular: Regular rate, Normal S1, Normal S2, No murmurs, no chest wall tenderness Abdominal: Normal bowel sounds, Soft, No tenderness, No hepatospenomegaly, No masses Extremities: No clubbing, No cyanosis, No edema, Normal pulses, No tenderness/swelling Skin: No rashes, No breakdown, No significant lesion Neuro: Normal gait, Normal speech, Strength at 5/5 X4 ext, Normal tone, Sensation intact, intact cranial nerves Psych/Mental Status: Mental status NL, Mood NL Labs/Diagnostic Data Labs Test 06/12/24 03:57 06/11/24 18:17 06/11/24 17:22 Range/Units White Blood Count 3.9 L 4.4-10.8 10^3/uL Red Blood Count 3.76 L 4.5-5.90 10^6/uL Hemoglobin 6.9 *L 13.5-17.5 g/dL Hematocrit 24.0 L 41.0-53.0 % Mean Corpuscular Volume 63.7 L 80.0-100.0 fL Mean Corpuscular Hemoglobin 18.4 L 28.0-32.0 pg Mean Corpuscular Hemoglobin Concent 28.8 L 32.0-36.0 g/dL Red Cell Distribution Width 19.2 H 11.8-14.3 % Platelet Count 297 140-450 10^3/uL Mean Platelet Volume 8.5 6.9-10.8 fL Neutrophils (%) (Auto) 50.2 37.0-80.0 % Lymphocytes (%) (Auto) 34.4 10.0-50.0 % Monocytes (%) (Auto) 11.9 0.0-12.0 % Eosinophils (%) (Auto) 2.0 0.0-7.0 % Basophils (%) (Auto) 1.5 0.0-2.0 % Neutrophils # (Auto) 2.0 1.6-8.6 10 ^3/uL Lymphocytes # (Auto) 1.3 0.4-5.4 10 ^3/uL Monocytes # (Auto) 0.5 0-1.3 10 ^3/uL Eosinophils # (Auto) 0.1 0-0.8 10 ^3/uL Basophils # (Auto) 0.1 0-0.2 10 ^3/uL Nucleated Red Blood Cells 0.3 % Platelet Estimate Adequate Polychromasia Slight Hypochromasia (manual) Marked Poikilocytosis (manual) Slight Microcytosis Marked Sodium Level 138 136-145 mmol/L Potassium Level 4.2 3.5-5.1 mmol/L Chloride Level 108 H 98-107 mmol/L Carbon Dioxide Level 21 20-31 mmol/L Anion Gap 9 5-15 Blood Urea Nitrogen 15 9-23 mg/dL Creatinine 0.99 0.700-1.30 mg/dL Glomerular Filtration Rate Calc 98 >90 mL/min BUN/Creatinine Ratio 15.2 10.0-20.0 Serum Glucose 113 H 74-106 mg/dL Calcium Level 9.8 8.7-10.4 mg/dL Total Bilirubin 0.5 0.2-1.0 mg/dL Aspartate Amino Transferase (AST) 31 13-40 U/L Alanine Aminotransferase (ALT) 42 H 7-40 U/L Alkaline Phosphatase 58 46-116 U/L Total Protein 7.5 5.7-8.2 g/dL Albumin 4.8 3.2-4.8 g/dL Troponin I High Sensitivity < 3 L </=54 ng/L Large Platelets Few Anisocytosis (manual) Slight Ovalocytes Few Stomatocytes Few Assessment Assessment : # Severe anemia likely due to GI bleeding # Microcytic hypochromic anemia # possible NSAID induced gastritis # History of hemorrhoid # Hypotension Plan : - Continue cardiac diet - IV Protonix 40 mg b.i.d. - Carafate 1 g p.o. q.i.d. - Ordered LDH, reticulocyte count to exclude hemolysis, B12, folate, iron panel, ferritin, coagulation studies and stool occult blood. - IV iron daily as per primary team. - Monitor H/H - Will follow the patient Plan discussed with Dr. Cifuentes Thank you for allowing us to participate this patient's care Plan discussed with: Patient, Other KEEGAN MCLAEN RESIDENT Jun 13, 2024 16:21
[2024-06-13] MEDS: DOCUSATE SOD 100 MG CAP PO ONE (17:10)
[2024-06-13] MEDS: SUCRALFATE 1 GM/10 ML ORAL SUSP PO SCH (17:10)
[2024-06-13] MEDS: PANTOPRAZOLE 40 MG/10 ML VIAL INJ IV SCH (17:11)
[2024-06-13 19:15] LABS: Basophils # (auto) 0 10 ^3/uL (0-0.2); Eosinophils # (auto) 0.1 10 ^3/uL (0-0.8); Hematocrit 25.3 % (41.0-53.0); Hemoglobin 7.2 g/dL (13.5-17.5); Lymphocytes # (auto) 1.1 10 ^3/uL (0.4-5.4); Mean Corpuscular Hgb Conc. 28.6 g/dL (32.0-36.0); Monocytes # (auto) 0.5 10 ^3/uL (0-1.3); Neutrophils # (auto) 2.2 10 ^3/uL (1.6-8.6); White Blood Cell 3.9 10^3/uL (4.4-10.8)
[2024-06-13 19:18] LABS: Basophils % (auto) 1.2 % (0.0-2.0); Eosinophils % (auto) 3.2 % (0.0-7.0); Lymphocytes % (auto) 28.6 % (10.0-50.0); Mean Corpuscular Hemoglobin 18.5 pg (28.0-32.0); Mean Corpuscular Volume 64.6 fL (80.0-100.0); Monocytes % (auto) 11.6 % (0.0-12.0); Neutrophils % (auto) 55.4 % (37.0-80.0); Nucleated Red Blood Cells % 0.1 %; Platelet Count (auto) 311 10^3/uL (140-450); Red Blood Cells 3.92 10^6/uL (4.5-5.90)
[2024-06-13 19:41] LABS: INR 1.06 (0.9-1.15); Prothrombin Time 11.2 sec (9.3-11.8)
[2024-06-13 19:49] LABS: Ferritin 45.1 ng/mL (22-322); Folate (Folic Acid) 17.67 ng/mL (>5.38); Thyroid Stimulating Hormone 1.32 uIU/mL (0.55-4.78)
[2024-06-13 19:52] LABS: % Iron Saturation 37.3 % (20-55)
[2024-06-13] MEDS: DOCUSATE SOD 100 MG CAP PO SCH (21:50)
[2024-06-14] VITALS (8 sets, daily range): BP systolic 93–112; BP diastolic 53–73; PULSE 56–77; RESP 16–18; TEMP 80–98.6; O2SAT 94–100
[2024-06-14 11:40] LABS: Alanine Aminotransferase 37 U/L (7-40); Anion Gap 8 (5-15); Calcium 9.9 mg/dL (8.7-10.4); Carbon Dioxide 24 mmol/L (20-31); Sodium 140 mmol/L (136-145)
[2024-06-14 11:41] LABS: Blood Urea Nitrogen 10 mg/dL (9-23)
[2024-06-14 11:42] LABS: Aspartate Aminotransferase 17 U/L (13-40)
[2024-06-14 11:43] LABS: Albumin 4.4 g/dL (3.2-4.8); Bilirubin, Total 0.5 mg/dL (0.2-1.0); Chloride 108 mmol/L (98-107); Glucose 136 mg/dL (74-106); Potassium 3.5 mmol/L (3.5-5.1); Total Protein 6.8 g/dL (5.7-8.2)
[2024-06-14 12:28] LABS: Alkaline Phosphatase 52 U/L (46-116)
[2024-06-14 14:03] LABS: Basophils # (auto) 0 10 ^3/uL (0-0.2); Eosinophils # (auto) 0.1 10 ^3/uL (0-0.8); Eosinophils % (auto) 3.1 % (0.0-7.0); Lymphocytes # (auto) 1.2 10 ^3/uL (0.4-5.4); Monocytes # (auto) 0.5 10 ^3/uL (0-1.3); Nucleated Red Blood Cells % 0.2 %
[2024-06-14 14:07] LABS: Basophils % (auto) 0.8 % (0.0-2.0); Hematocrit 25.5 % (41.0-53.0); Hemoglobin 7.2 g/dL (13.5-17.5); Lymphocytes % (auto) 32.3 % (10.0-50.0); Mean Corpuscular Hemoglobin 18.5 pg (28.0-32.0); Mean Corpuscular Hgb Conc. 28.1 g/dL (32.0-36.0); Mean Corpuscular Volume 65.6 fL (80.0-100.0); Monocytes % (auto) 13.7 % (0.0-12.0); Neutrophils # (auto) 1.8 10 ^3/uL (1.6-8.6); Neutrophils % (auto) 50.1 % (37.0-80.0); Platelet Count (auto) 287 10^3/uL (140-450); Red Blood Cells 3.89 10^6/uL (4.5-5.90); Red Cell Distribution Width 19.4 % (11.8-14.3); White Blood Cell 3.7 10^3/uL (4.4-10.8)
[2024-06-14 14:18] LABS: Hypochromia Marked; Platelet Estimate Adequate
[2024-06-14 16:18] LABS: Urine Bacteria None Seen /hpf (None Seen)
[2024-06-14 16:37] LABS: Urine Blood Negative /uL (Negative); Urine Clarity Clear (Clear); Urine Color Yellow (Yellow); Urine Mucus FEW (None Seen); Urine Protein, UAD TRACE (Negative); Urine Specific Gravity 1.027 (1.001-1.035); Urine Squamous Epithelial Cell FEW /hpf (<5); Urine Urobilinogen 2 mg/dL (Negative); Urine WBC 1 /HPF (0-3)
--- NOTE | 2024-06-14 17:39 | DVHPN2 ---
Progress Note Date Seen: Jun 14, 2024 Resident Creating Document: KEEGAN MCLEAN RESIDENT Medical Necessity Reason Pt with a Central, PICC or Fol: No Subjective Review of Systems This is a 41 years old male without significant past medical history and Jehovah Witness presented to the ED with a chief complaint of dizziness, shortness of breath and chest pain since morning prior to this admission. Patient stated that when he was doing grocery in [facility] he was feeling dizzy, shortness of breath, epigastric pain which was continuous, 8/10, localized without any nausea and vomiting and his recent blood work with his PCP mentioned he has low hemoglobin but as because he is Jehovah Witness preferred iron pill instead of blood transfusion. The patient also mentioned he was taking ibuprofen 800 mg p.r.n. for left shoulder pain for last couple of weeks. Patient denies hematemesis, melena, blood in his stool or any change in bowel and bladder habit. ED hemoglobin was 6.8 and hematocrit 23.1, troponins were unremarkable and patient was saturating 97% on room air. Chest x-ray revealed mild cardiomegaly with mild pulmonary vascular congestion. The patient started on IV iron in ED Patient was seen and examined on the bedside. He is alert oriented x3. Mentioned improvement of dizziness and denied any hematemesis, blood in stool or melena. No other active complaint Objective vital signs Vital Sign Date Time Temp Pulse Resp B/P (MAP) Pulse Ox O2 Delivery O2 Flow Rate FiO2 06/14/24 17:00 97.5 60 17 104/72 (83) 98 97.5 06/14/24 07:54 Room Air* 0 21 Total Intake and Output 06/13/24 06/13/24 06/14/24 15:00 23:00 07:00 Intake Total 110 ml 150 ml 880 ml Balance 110 ml 150 ml 880 ml medications Current Medications Medications Dose Ordered Sig/Sadie Route Start Time Stop Time Status Last Admin Dose Admin Sodium Chloride 1,000 ml @ 60 mls/hr [id number] IV 06/11/24 20:15 06/14/24 15:25 60 MLS/HR Acetaminophen/ Hydrocodone Bitart 1 tab Q4HP PRN PO 06/11/24 20:15 Ondansetron HCl 4 mg Q4HP PRN IV 06/11/24 20:15 Acetaminophen 650 mg Q6HP PRN PO 06/11/24 20:15 Morphine Sulfate 2 mg Q4HPRN PRN IV 06/11/24 20:15 06/12/24 12:41 2 MG Nitroglycerin 0.4 mg Q5MINP PRN SL 06/11/24 21:45 Morphine Sulfate 2 mg Q30M PRN IV 06/11/24 21:45 Iron Sucrose 110 ml @ 110 mls/hr DAILY@1200 IV 06/12/24 12:00 06/16/24 12:59 06/14/24 12:07 110 MLS/HR Docusate Sodium 100 mg BID PO 06/13/24 22:00 06/14/24 09:03 100 MG Pantoprazole Sodium 40 mg BID IV 06/13/24 16:45 06/14/24 09:03 40 MG Sucralfate 1 gm QID@0600,1130,1700,2200 PO 06/13/24 17:00 06/14/24 16:51 1 GM Examination Physical examination: General Appearance: Alert, Oriented X3, Cooperative, No acute distress HEENT: Atraumatic, PERRLA, EOMI, Mucous membrane moist/pink Respiratory: Clear to auscultation, Normal air movement Cardiovascular: Regular rate, Normal S1, Normal S2, No murmurs, no chest wall tenderness Abdominal: Normal bowel sounds, Soft, No tenderness, No hepatospenomegaly, No masses Extremities: No clubbing, No cyanosis, No edema, Normal pulses, No tenderness/swelling Skin: No rashes, No breakdown, No significant lesion Neuro: Normal gait, Normal speech, Strength at 5/5 X4 ext, Normal tone, Sensation intact, Cranial nerves 3-12 NL, Reflexes 2+ Psych/Mental Status: Mental status NL, Mood NL laboratory and microbiology Laboratory Tests 06/14/24 10:31 Test 06/14/24 10:31 Range/Units Serum Glucose 136 H 74-106 mg/dL Labs and/or images reviewed: Labs reviewed by me, Image(s) reviewed by me Problem List/Assessment/Plan Problem List/Assessment/Plan Assessment : # Severe anemia likely due to GI bleeding # Microcytic hypochromic anemia # possible NSAID induced gastritis # History of hemorrhoid # Hypotension Plan : - Upper GI endoscopy tomorrow on 05/15/24 - NPO after midnight - IV Protonix 40 mg b.i.d. - Carafate 1 g p.o. q.i.d. - Pending stool occult blood. - IV iron daily as per primary team. - Monitor H/H - Will follow the patient Plan discussed with Dr. Cifuentes Plan discussed with: Patient, Other My Orders My Orders Orders - KEEGAN MCLEAN Procedure Category Date Status Time Comprehensive LAB 06/14/24 In Process Hepatitis Panel 09:28 KEEGAN MCLEAN Jun 14, 2024 17:39
[2024-06-14] MEDS: HYDROcodone-ACET 5/325MG TAB PO PRN (22:34)
[2024-06-15] VITALS (10 sets, daily range): BP systolic 130–137; BP diastolic 50–74; PULSE 56–88; RESP 14–21; TEMP 97.8–98.5; O2SAT 92–100
[2024-06-15 07:28] LABS: Basophils # (auto) 0 10 ^3/uL (0-0.2); Eosinophils # (auto) 0.1 10 ^3/uL (0-0.8); Hemoglobin 7.6 g/dL (13.5-17.5); Monocytes # (auto) 0.5 10 ^3/uL (0-1.3)
[2024-06-15 07:30] LABS: Basophils % (auto) 0.9 % (0.0-2.0); Eosinophils % (auto) 2.9 % (0.0-7.0); Hematocrit 27.1 % (41.0-53.0); Lymphocytes # (auto) 1.1 10 ^3/uL (0.4-5.4); Lymphocytes % (auto) 25.5 % (10.0-50.0); Mean Corpuscular Hemoglobin 18.6 pg (28.0-32.0); Mean Corpuscular Hgb Conc. 28.2 g/dL (32.0-36.0); Mean Corpuscular Volume 65.7 fL (80.0-100.0); Monocytes % (auto) 11.3 % (0.0-12.0); Neutrophils # (auto) 2.5 10 ^3/uL (1.6-8.6); Neutrophils % (auto) 59.4 % (37.0-80.0); Nucleated Red Blood Cells % 0.4 %; Platelet Count (auto) 268 10^3/uL (140-450); Red Blood Cells 4.12 10^6/uL (4.5-5.90); Red Cell Distribution Width 19.5 % (11.8-14.3); White Blood Cell 4.2 10^3/uL (4.4-10.8)
[2024-06-15 07:36] LABS: Hypochromia Marked; Platelet Estimate Adequate
[2024-06-15] MEDS ORDERED: SODIUM CHLORIDE LOCK 10 ML ONE (09:30)
--- NOTE | 2024-06-15 12:27 | DVHPN2 ---
Reviewed: Care Plan, H&P, Labs, Medications, Previous Orders, Radiology Changes from previous H/P or p: No Changes General: Per HPI Eyes: No Pain, No Vision change, No Conjunctivae inflammation, No Eyelid inflammation, No Other, No Redness ENT: No Ear pain, No Ear discharge, No Nose pain, No Nose discharge, No Nose congestion, No Mouth pain, No Mouth swelling, No Throat pain, No Throat swelling, No Other Cardiovascular: Chest Pain; No Palpitations, No Orthopnea, No Paroxysmal Noc. Dyspnea, No Edema, No Lt Headedness, No Other Respiratory: No Cough, No Dry, No Shortness of breath, No SOB with excertion, No Wheezing, No Hemoptysis, No Pleuritic Pain, No Sputum, No Other Gastrointestinal: No Nausea, No Vomiting, No Abdominal Pain, No Diarrhea, No Constipation, No Melena, No Hematochezia, No Other Genitourinary: No Dysuria, No Frequency, No Incontinence, No Hematuria, No Retention, No Other Musculoskeletal: No other, No neck pain, No shoulder pain, No arm pain, No back pain, No hand pain, No leg pain, No foot pain Skin: No Rash, No Lesions, No Jaundice, No Bruising, No Other Objective Vitals Vital Signs Date Time Temp Pulse Resp B/P (MAP) Pulse Ox O2 Delivery O2 Flow Rate FiO2 06/15/24 09:21 98.5 59 18 136/54 (81) 98 98.5 06/15/24 08:00 Room Air* 0 21 Intake/Output Intake and Output 06/15/24 07:00 Intake Total 3404 ml Balance 3404 ml Intake Oral 1594 ml IV Total 1810 ml # Voids 5 # Bowel Movements 2 General Appearance: Alert, Oriented X3, Cooperative, No acute distress HEENT: Atraumatic, PERRLA, EOMI, Mucous membr. moist/pink Neck: Supple Lungs: Clear to auscultation Cardiovascular: Regular rate, Normal S1, Normal S2, No murmurs, Gallops, Rubs Abdomen: Normal bowel sounds, Soft Extremities: Normal pulses Neuro: Cranial nerves 3-12 NL Psych/Mental Status: Mental status NL Medications Current Medications Medications Dose Ordered Sig/Sadie Route Start Time Stop Time Status Last Admin Dose Admin Sodium Chloride 1,000 ml @ 60 mls/hr [id number] IV 06/11/24 20:15 06/15/24 09:25 60 MLS/HR Acetaminophen/ Hydrocodone Bitart 1 tab Q4HP PRN PO 06/11/24 20:15 06/14/24 22:34 1 TAB Ondansetron HCl 4 mg Q4HP PRN IV 06/11/24 20:15 Acetaminophen 650 mg Q6HP PRN PO 06/11/24 20:15 Morphine Sulfate 2 mg Q4HPRN PRN IV 06/11/24 20:15 06/12/24 12:41 2 MG Nitroglycerin 0.4 mg Q5MINP PRN SL 06/11/24 21:45 Morphine Sulfate 2 mg Q30M PRN IV 06/11/24 21:45 Iron Sucrose 110 ml @ 110 mls/hr DAILY@1200 IV 06/12/24 12:00 06/16/24 12:59 06/15/24 12:25 110 MLS/HR Docusate Sodium 100 mg BID PO 06/13/24 22:00 06/14/24 21:43 100 MG Pantoprazole Sodium 40 mg BID IV 06/13/24 16:45 06/15/24 09:25 40 MG Sucralfate 1 gm QID@0600,1130,1700,2200 PO 06/13/24 17:00 06/15/24 05:52 1 GM Laboratory Results Laboratory Tests 06/14/24 10:31 06/15/24 07:01 Urinalysis Test 06/14/24 15:22 Urine Color Yellow (Yellow) Urine Clarity Clear (Clear) Urine pH 6.0 (5.0-9.0) Urine Specific [place] 1.027 (1.001-1.035) Urine Protein Trace (Negative) H Urine Ketones Negative (Negative) Urine Blood Negative /uL (Negative) Urine Nitrite Negative (Negative) Urine Bilirubin Negative (Negative) Urine Urobilinogen 2 mg/dL (Negative) H Urine Leukocyte Esterase Negative /uL (Negative) Urine RBC <1 /hpf (0 - 3) Urine Microscopic WBC 1 /HPF (0-3) Urine Squamous Epithelial Cells Few /hpf (<5) Urine Bacteria None seen /hpf (None Seen) Urine Mucus Few (None Seen) Urine Glucose Normal mg/dL (Normal) Assessment/Plan Assessment/Plan Severe anemia Generalized weakness Unstable angina Iron deficiency anemia secondary to blood loss (chronic) 06/14/2024: Continuing current management. Continuing with iron infusions. GI to complete endoscopy today I also called and discussed with cork sorter, , she will see the patient The patient is Jehovah Witness and can not receive blood transfusions. We will monitor hemoglobin Plan discussed with: Patient Date of Service: Jun 14, 2024 Billing Provider: RONAL JACKSON DO Common Visit Codes: [id number] INP/OBS CARE(HIGH) RONAL JACKSON DO Jun 15, 2024 12:27
--- NOTE | 2024-06-15 12:30 | DVHPN2 ---
Reviewed: Care Plan, H&P, Labs, Medications, Previous Orders, Radiology Changes from previous H/P or p: No Changes General: Per HPI Eyes: No Pain, No Vision change, No Conjunctivae inflammation, No Eyelid inflammation, No Other, No Redness ENT: No Ear pain, No Ear discharge, No Nose pain, No Nose discharge, No Nose congestion, No Mouth pain, No Mouth swelling, No Throat pain, No Throat swelling, No Other Cardiovascular: Chest Pain; No Palpitations, No Orthopnea, No Paroxysmal Noc. Dyspnea, No Edema, No Lt Headedness, No Other Respiratory: No Cough, No Dry, No Shortness of breath, No SOB with excertion, No Wheezing, No Hemoptysis, No Pleuritic Pain, No Sputum, No Other Gastrointestinal: No Nausea, No Vomiting, No Abdominal Pain, No Diarrhea, No Constipation, No Melena, No Hematochezia, No Other Genitourinary: No Dysuria, No Frequency, No Incontinence, No Hematuria, No Retention, No Other Musculoskeletal: No other, No neck pain, No shoulder pain, No arm pain, No back pain, No hand pain, No leg pain, No foot pain Skin: No Rash, No Lesions, No Jaundice, No Bruising, No Other Objective Vitals Vital Signs Date Time Temp Pulse Resp B/P (MAP) Pulse Ox O2 Delivery O2 Flow Rate FiO2 06/15/24 09:21 98.5 59 18 136/54 (81) 98 98.5 06/15/24 08:00 Room Air* 0 21 Intake/Output Intake and Output 06/15/24 07:00 Intake Total 3404 ml Balance 3404 ml Intake Oral 1594 ml IV Total 1810 ml # Voids 5 # Bowel Movements 2 General Appearance: Alert, Oriented X3, Cooperative, No acute distress HEENT: Atraumatic, PERRLA, EOMI, Mucous membr. moist/pink Neck: Supple Lungs: Clear to auscultation Cardiovascular: Regular rate, Normal S1, Normal S2, No murmurs, Gallops, Rubs Abdomen: Normal bowel sounds, Soft Extremities: Normal pulses Neuro: Cranial nerves 3-12 NL Psych/Mental Status: Mental status NL Medications Current Medications Medications Dose Ordered Sig/Sadie Route Start Time Stop Time Status Last Admin Dose Admin Sodium Chloride 1,000 ml @ 60 mls/hr [id number] IV 06/11/24 20:15 06/15/24 09:25 60 MLS/HR Acetaminophen/ Hydrocodone Bitart 1 tab Q4HP PRN PO 06/11/24 20:15 06/14/24 22:34 1 TAB Ondansetron HCl 4 mg Q4HP PRN IV 06/11/24 20:15 Acetaminophen 650 mg Q6HP PRN PO 06/11/24 20:15 Morphine Sulfate 2 mg Q4HPRN PRN IV 06/11/24 20:15 06/12/24 12:41 2 MG Nitroglycerin 0.4 mg Q5MINP PRN SL 06/11/24 21:45 Morphine Sulfate 2 mg Q30M PRN IV 06/11/24 21:45 Iron Sucrose 110 ml @ 110 mls/hr DAILY@1200 IV 06/12/24 12:00 06/16/24 12:59 06/15/24 12:25 110 MLS/HR Docusate Sodium 100 mg BID PO 06/13/24 22:00 06/14/24 21:43 100 MG Pantoprazole Sodium 40 mg BID IV 06/13/24 16:45 06/15/24 09:25 40 MG Sucralfate 1 gm QID@0600,1130,1700,2200 PO 06/13/24 17:00 06/15/24 05:52 1 GM Laboratory Results Laboratory Tests 06/14/24 10:31 06/15/24 07:01 Urinalysis Test 06/14/24 15:22 Urine Color Yellow (Yellow) Urine Clarity Clear (Clear) Urine pH 6.0 (5.0-9.0) Urine Specific [place] 1.027 (1.001-1.035) Urine Protein Trace (Negative) H Urine Ketones Negative (Negative) Urine Blood Negative /uL (Negative) Urine Nitrite Negative (Negative) Urine Bilirubin Negative (Negative) Urine Urobilinogen 2 mg/dL (Negative) H Urine Leukocyte Esterase Negative /uL (Negative) Urine RBC <1 /hpf (0 - 3) Urine Microscopic WBC 1 /HPF (0-3) Urine Squamous Epithelial Cells Few /hpf (<5) Urine Bacteria None seen /hpf (None Seen) Urine Mucus Few (None Seen) Urine Glucose Normal mg/dL (Normal) Assessment/Plan Assessment/Plan Severe anemia Generalized weakness Unstable angina Iron deficiency anemia secondary to blood loss (chronic) 06/14/2024: Continuing current management. Continuing with iron infusions. GI to complete endoscopy today I also called and discussed with fleet driver, , she will see the patient The patient is Jehovah Witness and can not receive blood transfusions. We will monitor hemoglobin 06/15/2024: planning for GI scoping today Plan discussed with: Patient Date of Service: Jun 15, 2024 Billing Provider: RONAL JACKSON DO Common Visit Codes: [id number] INP/OBS CARE(HIGH) RONAL JACKSON DO Jun 15, 2024 12:30
[2024-06-15] MEDS: LIDOCAINE VISCOUS 2% 15ML UD ONE (14:07)
[2024-06-15] MEDS: fentaNYL CITRATE 100 MCG/2 ML VL ONE (14:09)
[2024-06-15] MEDS: MIDAZOLAM HCL 5 MG/ML-1ML VIAL ONE (14:09)
[2024-06-15] MEDS: diphenhdrAMINE HCL 50 MG/1 ML VL ONE (14:09)
--- NOTE | 2024-06-15 14:25 | DVHOP2 ---
Operative Report DATE OF OPERATION: 06/15/24 PROCEDURE: Upper Endoscopy with biopsy. PREOPERATIVE INDICATION: The patient is a 43 -year-old male undergoing endoscopy for severe anemia POSTOPERATIVE DIAGNOSES: 1. Patient had a 6-7 cm sliding-type hiatal hernia with some superficial linear erosions of the diaphragmatic impingement 2. Mild antral gastritis with some pre-pyloric antral gastric erosions PROCEDURE PERFORMED BY: Ab Cifuentes GI NURSE: Neeta SCOPE: Olympus videoendoscope. ASA CLASS: 2 PREOPERATIVE MEDICATIONS: Versed 5 mg, Fentanyl 100 mcg, Benadryl 50 mg I administered moderate sedation throughout this _10_ minutes procedure. An independent trained observer pushed medications at my direction, and monitored the patient's level of consciousness and physiological status throughout. PROCEDURE IN DETAIL: After obtaining an informed consent, the patient was placed on left lateral decubitus position. The patient was then sedated with the above medications. A bite block was placed between his teeth. The endoscope was then passed through the oropharynx, into the esophagus, and through the stomach and pylorus up to the second and third part of the duodenum. The endoscope was then withdrawn. The 2nd and 3rd part of the duodenum and the duodenal bulb were normal. Duodenal biopsies were obtained. There was good bile drainage The pre-pyloric area antrum and distal body showed mild antral gastritis with some superficial erosions and tiny ulcers. Gastric biopsies were obtained On retroflexion the fundus cardia were normal. Patient had a hiatal hernia. There was no fresh or old blood in the UGI tract. The endoscope was then withdrawn into the distal esophagus where the patient had a 6 cm sliding-type hiatal hernia. There was no esophagitis There were some superficial linear gastric erosions of the diaphragmatic impingement. The remaining distal and proximal esophagus and oropharynx were unremarkable The patient tolerated the procedure well without difficulty. COMPLICATIONS : None SPECIMENS: Duodenal biopsies Gastric biopsies DISPOSITION: Transfer back to the floor Stable PLAN: 1. Await for biopsy result 2. Will place pt on Protonix 40 mg bid 3. Carafate 1 g p.o. 4 times a day 4. DC aspirin NSAIDs smoking alcohol 5. Supplement with iron 6. Anemia could be related to the large hiatal hernia and Shilo's erosions 7. Patient still however should be advised a elective colonoscopy for screening. This can be done on to 06/17/2024 if still hospitalized otherwise I will ar range it electively as an outpatient AB CIFUENTES MD Jun 15, 2024 14:25
[2024-06-16 01:00] VITALS: BP 127/65; PULSE 64; RESP 18; TEMP 98.2; O2SAT 93
[2024-06-16 05:00] VITALS: BP 134/67; PULSE 67; RESP 19; TEMP 97.9; O2SAT 96
[2024-06-16 08:00] VITALS: PULSE 64; RESP 20; O2SAT 96
[2024-06-16 09:00] VITALS: BP 136/66; PULSE 58; RESP 20; TEMP 98; O2SAT 97
[2024-06-16 10:15] LABS: Hepatitis B Core Total AB Negative (Negative)
[2024-06-16 13:00] VITALS: BP 142/77; PULSE 70; RESP 18; TEMP 98.4; O2SAT 98
[2024-06-16 13:22] LABS: Hepatitis A Total Antibody Positive (Negative); Hepatitis B Surface Antibody Negative (Negative); Hepatitis B Surface Antigen Negative (Negative); Hepatitis C Antibody Negative (Negative)
[2024-06-16 13:24] VITALS: TEMP 36.7
[2024-06-16] MEDS ORDERED: PANT40T PO (14:10)
[2024-06-16] MEDS ORDERED: SUCR1SUS26 PO (14:10)
--- NOTE | 2024-06-16 14:11 | DVHDS2 ---
Discharge Summary Date of Admission Jun 11, 2024 at 21:41 Date of Discharge: Jun 16, 2024 Labs/Diagnostic Data: Laboratory Results Test 06/15/24 07:01 06/14/24 15:22 06/14/24 10:31 06/13/24 18:57 White Blood Count 4.2 10^3/uL (4.4-10.8) Red Blood Count 4.12 10^6/uL (4.5-5.90) Hemoglobin 7.6 g/dL (13.5-17.5) Hematocrit 27.1 % (41.0-53.0) Mean Corpuscular Volume 65.7 fL (80.0-100.0) Mean Corpuscular Hemoglobin 18.6 pg (28.0-32.0) Mean Corpuscular Hemoglobin Concent 28.2 g/dL (32.0-36.0) Red Cell Distribution Width 19.5 % (11.8-14.3) Platelet Count 268 10^3/uL (140-450) Mean Platelet Volume 8.5 fL (6.9-10.8) Neutrophils (%) (Auto) 59.4 % (37.0-80.0) Lymphocytes (%) (Auto) 25.5 % (10.0-50.0) Monocytes (%) (Auto) 11.3 % (0.0-12.0) Eosinophils (%) (Auto) 2.9 % (0.0-7.0) Basophils (%) (Auto) 0.9 % (0.0-2.0) Neutrophils # (Auto) 2.5 10 ^3/uL (1.6-8.6) Lymphocytes # (Auto) 1.1 10 ^3/uL (0.4-5.4) Monocytes # (Auto) 0.5 10 ^3/uL (0-1.3) Eosinophils # (Auto) 0.1 10 ^3/uL (0-0.8) Basophils # (Auto) 0 10 ^3/uL (0-0.2) Nucleated Red Blood Cells 0.4 % Platelet Estimate Adequate Hypochromasia (manual) Marked Microcytosis Marked Urine Color Yellow (Yellow) Urine Clarity Clear (Clear) Urine pH 6.0 (5.0-9.0) Urine Specific Wolf 1.027 (1.001-1.035) Urine Protein Trace (Negative) Urine Ketones Negative (Negative) Urine Blood Negative /uL (Negative) Urine Nitrite Negative (Negative) Urine Bilirubin Negative (Negative) Urine Urobilinogen 2 mg/dL (Negative) Urine Leukocyte Esterase Negative /uL (Negative) Urine RBC <1 /hpf (0 - 3) Urine Microscopic WBC 1 /HPF (0-3) Urine Squamous Epithelial Cells Few /hpf (<5) Urine Bacteria None seen /hpf (None Seen) Urine Mucus Few (None Seen) Urine Glucose Normal mg/dL (Normal) Stool Occult Blood Negative (Negative) Stool Occult Blood Sample #3 (Negative) Sodium Level 140 mmol/L (136-145) Potassium Level 3.5 mmol/L (3.5-5.1) Chloride Level 108 mmol/L (98-107) Carbon Dioxide Level 24 mmol/L (20-31) Anion Gap 8 (5-15) Blood Urea Nitrogen 10 mg/dL (9-23) Creatinine 0.91 mg/dL (0.700-1.30) Glomerular Filtration Rate Calc 108 mL/min (>90) BUN/Creatinine Ratio 11.0 (10.0-20.0) Serum Glucose 136 mg/dL (74-106) Calcium Level 9.9 mg/dL (8.7-10.4) Total Bilirubin 0.5 mg/dL (0.2-1.0) Aspartate Amino Transferase (AST) 17 U/L (13-40) Alanine Aminotransferase (ALT) 37 U/L (7-40) Alkaline Phosphatase 52 U/L (46-116) Total Protein 6.8 g/dL (5.7-8.2) Albumin 4.4 g/dL (3.2-4.8) Hepatitis A Antibody Total Positive (Negative) Hepatitis B Surface Antigen Negative (Negative) Hepatitis B Surface Antibody Negative (Negative) Hepatitis B Core Total Antibody Negative (Negative) Hepatitis C Antibody Negative (Negative) Reticulocyte Count (auto) 5.70 % (0.5-1.5) Prothrombin Time 11.2 sec (9.3-11.8) Prothrombin Time INR 1.06 (0.9-1.15) Activated Partial Thromboplast Time 26.0 SEC (24.5-34.5) Iron Level 199 ug/dL (65-175) Total Iron Binding Capacity 534 ug/dL (250-425) Percent Iron Saturation 37.3 % (20-55) Ferritin 45.1 ng/mL (22-322) Lactate Dehydrogenase 128 U/L (120-246) Vitamin B12 Level 544 pg/mL (211-911) Folic Acid 17.67 ng/mL (>5.38) Thyroid Stimulating Hormone (TSH) 1.32 uIU/mL (0.55-4.78) Test 06/12/24 03:57 06/11/24 18:17 06/11/24 17:22 Polychromasia Slight Poikilocytosis (manual) Slight Troponin I High Sensitivity < 3 ng/L (</=54) Large Platelets Few Anisocytosis (manual) Slight Ovalocytes Few Stomatocytes Few Other Laboratory Tests 06/15/24 07:01 06/14/24 10:31 Condition at Discharge: Good Final Diagnosis/Problems List ANEMIA Discharge Disposition: Home Discharge Instruct/Medications Diet: Cardiac 2g Na,low cholest Activity: No Restrictions, As Tolerated Discharge Statement: "Patient was advised to return to the ER or call 911 if any headaches, dizziness, shortness of breath, chest pain, abdominal pain, bleeding, fevers, or worsening of medical condition. Patient was counseled about treatment plan, medications, possible side effects, patientverbalized understanding. All questions were answered to the best of my ability. This discharge took greater then 30 minutes in planning, reviewing documentation, counseling the patient, and discussing with other team members." ASSESSMENT ASSESSMENT Assessment ANEMIA Date of Service: Jun 16, 2024 Billing Provider: RONAL JACKSON DO Common Visit Codes: 35128-NCI/OBS DISCH DAY >30min RONAL JACKSON DO Jun 16, 2024 14:11
--- NOTE | 2024-06-16 19:48 | DVHPN2 ---
Progress Note - Dictate Date Seen: Jun 16, 2024 (Late entryPatient seen at 10:00 a.m.) Medical Necessity Reason Pt with a Central, PICC or Fol: No Subjective No new complaints Patient is tolerating diet No GI bleeding EGD findings discussed with patient about large hiatal hernia and gastritis Patient advised to discontinue aspirin and NSAIDs vital signs Vital Sign Date Time Temp Pulse Resp B/P (MAP) Pulse Ox O2 Delivery O2 Flow Rate FiO2 06/16/24 13:24 36.7 06/16/24 13:00 70 18 142/77 (98) 98 06/16/24 08:00 Room Air* 0 21 Total Intake and Output 06/15/24 06/15/24 06/16/24 15:00 23:00 07:00 Intake Total 1100 ml 410 ml 1100 ml Balance 1100 ml 410 ml 1100 ml objective General Appearance: Alert, Oriented X3, Cooperative, No acute distress HEENT: Atraumatic, PERRLA, EOMI, Mucous membrane moist/pink Respiratory: Clear to auscultation, Normal air movement Cardiovascular: Regular rate, Normal S1, Normal S2, No murmurs, no chest wall tenderness Abdominal: Normal bowel sounds, Soft, No tenderness, No hepatospenomegaly, No masses Extremities: No clubbing, No cyanosis, No edema, Normal pulses, No tenderness/swelling Skin: No rashes, No breakdown, No significant lesion Neuro: Normal gait, Normal speech, Strength at 5/5 X4 ext, Normal tone, Sensation intact, Cranial nerves 3-12 NL, Reflexes 2+ Psych/Mental Status: Mental status NL, Mood NL laboratory and microbiology Laboratory Tests 06/15/24 07:01 06/14/24 10:31 Test 06/14/24 10:31 Range/Units Serum Glucose 136 H 74-106 mg/dL Problems(with codes): (1) Shilo lesion, chronic (2) Hiatal hernia (3) Severe anemia (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 Discharge planning in progress 2. Will place pt on Protonix 40 mg bid 3. Carafate 1 g p.o. 4 times a day 4. DC aspirin NSAIDs smoking alcohol 5. Supplement with iron 6. Anemia could be related to the large hiatal hernia and Shilo's erosions 7. Patient still however should be advised a elective colonoscopy for screening. Patient was advised to follow up in my office and contact information was given Plan discussed with: Patient, Other (Dr Sherman) BA KRISHNAN MD Jun 16, 2024 19:48
== END 2024-06-16 14:50 | disposition home or self-care (01) | DRG 241 ==
LOC: EDBD 16:45 → ER 16:45 → TELE 21:41 → TELE-WESTW 06-12 04:24 → OVERFLOW 06-14 15:35 → WEST WING 06-14 15:50 → OVERFLOW 06-15 13:19 → TELE-WESTW 06-15 13:34
PROVIDERS: ADMIT Nurse Practitioner Family; ATTEND Internal Medicine
PROC: 0DB68ZX Excision of Stomach, Via Natural or Artificial Opening Endoscopic, Diagnostic (ICD-10-PCS; 2024-06-15)
PROC: 0DB98ZX Excision of Duodenum, Via Natural or Artificial Opening Endoscopic, Diagnostic (ICD-10-PCS; principal; 2024-06-15 14:00)
DX: K29.70 Gastritis, unspecified, without bleeding (principal); K25.4 Chronic or unspecified gastric ulcer with hemorrhage; I95.9 Hypotension, unspecified; K44.9 Diaphragmatic hernia without obstruction or gangrene; D50.0 Iron deficiency anemia secondary to blood loss (chronic); I20.0 Unstable angina
CPT/HCPCS: 36415; 71045; 80053; 81001; 82270; 82607; 82728; 82746; 83540; 83550; 83615; 84443; 84484; 85025; 85045; 85610; 85730; 86704; 86706; 86708; 86803; 86850; 86900; 86901; 87340; 93005; 99291; G0378; J1756; J2250; J2470

== ENCOUNTER 2024-12-07 11:28 | Emergency (ER) | payer MEDICAID ==
[~2024-12-07] VITALS: Ht 175.3 cm; Wt 118.5 kg
[~2024-12-07 11:28] MED LIST: ERGO1CAP12 PO; FERR325T20 PO; PANT40T PO; SUCR1SUS26 PO
[2024-12-07 11:29] VITALS: TEMP 98.1
[2024-12-07 12:06] LABS: Hematocrit 38.1 % (41.0-53.0); Hemoglobin 12.0 g/dL (13.5-17.5); Mean Corpuscular Hemoglobin 23.0 pg (28.0-32.0); Mean Corpuscular Volume 73.1 fL (80.0-100.0); Nucleated Red Blood Cells % 0.0 %
--- NOTE | 2024-12-07 12:06 | ED.PDOC ---
Musculoskeletal HPI Comments This is a 44 year-old male who presents to the ED with a chief complaint of L knee pain as of X1 month ago. Patient states pain is "sharp", spontaneous, with no associated relieving factors. Patient states he was admitted at [facility] in June for low hemoglobin. Patient reports being diagnosed with a Hiatal Hernia after low hemoglobin diagnosis. Patient has no further complaints at this time and otherwise denies trauma to the area or further associated symptoms of N/V/D, fever, chills, dizziness, or migraine. Chief Complaint: Lower Extremity Time Seen by MD: 11:46 Primary Care Provider: MICHELLE Reviewed Notes: Nurses Notes, Medications, Allergies Allergies: Coded Allergies: NO KNOWN ALLERGIES (Unverified , 06/11/24) Home Meds Active Scripts Pantoprazole Sodium Sesquihydr (Pantoprazole Sodium) 40 Mg Tab, 40 MG PO BID for 30 Days, #60 TAB Prov:RONAL JACKSON DO 06/16/24 Sucralfate (CARAFATE SUSP) 1 Gm/10 Ml Ss, 1 GM PO QID@0600,1130,1700,2200 for 30 Days, #120 ML 4 Refills Prov:RONAL JACKSON DO 06/16/24 Reported Medications Ferrous Sulfate (Ferosul) 325 Mg Tab, 1 TAB PO BID 06/12/24 Ergocalciferol (Vitamin D) 50,000 Unit Cap, 1 CAP PO QWEEKLY 06/12/24 Information Source: Patient Mode of Arrival: Wheelchair Location: Left Extremity Location: Knee Timing: Weeks Severity: Moderate Onset of Symptoms: Spontaneous Associated signs and symptoms: Knee pain Past Medical History PAST MEDICAL HISTORY: Anemia Past Medical History (Other): Hiatel Hernia Surgical History: Denies all surgeries Family History Family History: Reviewed,noncontributory to illness, Unknown Social History Smoker: Non-Smoker Alcohol: Other (4-5 drinks a week ) Drugs: Marijuana Lives In: Home Constitutional: denies: chills, diaphoresis, fatigue, fever, malaise, sweats, weakness, others EENTM: denies: blurred vision, double vision, ear bleeding, ear discharge, ear drainage, ear pain, ear ringing, eye pain, eye redness, hearing loss, mouth pain, mouth swelling, nasal discharge, nose bleeding, nose congestion, nose pain, photophobia, tearing, throat pain, throat swelling, voice changes, others Respiratory: denies: cough, hemoptysis, orthopnea, SOB at rest, shortness of breath, SOB with excertion, stridor, wheezing, others Cardiovascular: denies: chest pain, dizzy spells, diaphoresis, Dyspnea on exertion, edema, irregular heart beat, left arm pain, lightheadedness, palpitations, PND, syncope, others Gastrointestinal: denies: abdomen distended, abdominal pain, blood streaked bowels, constipated, diarrhea, dysphagia, difficulty swallowing, hematemesis, melena, nausea, poor appetite, poor fluid intake, rectal bleeding, rectal pain, vomiting, others Genitourinary: denies: burning, dysuria, flank pain, frequency, hematuria, incontinence, penile discharge, penile sore, pain, testicle pain, testicle swelling, urgency, others Neurological: denies: dizziness, fainting, headache, left sided numbness, left sided weakness, numbness, paresthesia, pre-existing deficit, right sided numbness, right sided weakness, seizure, speech problems, tingling, tremors, weakness, others Musculoskeletal: reports: joint pain; denies: back pain, gout, joint swelling, muscle pain, muscle stiffness, neck pain, others Integumetry: denies: bruises, change in color, change in hair/nails, dryness, laceration, lesions, lumps, rash, wounds, others Allergic/Immunocompromised: denies: Difficulty Healing, Frequent Infections, Hives, Itching, others Hematologic/Lymphatic: denies: anemia, blood clots, easy bleeding, easy bruising, swollen glands, others Endocrine: denies: excessive hunger, excessive sweating, excessive thirst, excessive urination, flushing, intolerance to cold, intolerance to heat, unexplained weight gain, unexplained weight loss, others Psychiatric: denies: anxiety, bipolar disorder, depression, hopeless, panic disorder, schizophrenia, sleepless, suicidal, others All Other Systems: Reviewed and Negative Physical Exam General Appearance: No Apparent Distress HEENT: Normal ENT Inspection, Pharynx Normal, TMs Normal Neck: Full Range of Motion, Non-Tender, Normal, Normal Inspection Respiratory: Chest Non-Tender, Lungs Clear, No Accessory Muscle Use, No Respiratory Distress, Normal Breath Sounds Cardiovascular: No Edema, No JVD, No Murmur, No Gallop, Normal Peripheral Pulses, Regular Rate/Rhythm Breast Exam: Deferred Gastrointestinal: No Organomegaly, Non Tender, No Pulsatile Mass, Normal Bowel Sounds, Soft Genitalia: Deferred Pelvic: Deferred Rectal: Deferred Extremities: No calf tenderness, Normal capillary refill, Normal inspection, Normal range of motion, Non-tender, No pedal edema Musculoskeletal : Apperance: Normal Neurologic: Alert, dulite machine bluer II-XII nml as Tested, Motor Weakness, Normal Affect, Normal Mood, No Sensory Deficits Cerebellar Function: Normal Reflexes: Normal Skin: Dry, Normal Color, Warm Lymphatic: No Adenopathy Was a procedure done? Was a procedure done?: No Differential Diagnosis EXT Differential Diagnosis: Cellulitis, Deep Vein Thrombosis, Fracture, Sprain, Strain X-Ray, Labs, Meds, VS Vital Signs Date Time Temp Pulse Resp B/P (MAP) Pulse Ox O2 Delivery O2 Flow Rate FiO2 12/07/24 11:29 98.1 80 16 131/78 97 98.1 Lab Test 12/07/24 11:56 Range/Units White Blood Count 5.0 4.4-10.8 10^3/uL Red Blood Count 5.21 4.5-5.90 10^6/uL Hemoglobin 12.0 L 13.5-17.5 g/dL Hematocrit 38.1 L 41.0-53.0 % Mean Corpuscular Volume 73.1 L 80.0-100.0 fL Mean Corpuscular Hemoglobin 23.0 L 28.0-32.0 pg Mean Corpuscular Hemoglobin Concent 31.5 L 32.0-36.0 g/dL Red Cell Distribution Width 17.8 H 11.8-14.3 % Platelet Count 304 140-450 10^3/uL Mean Platelet Volume 8.2 6.9-10.8 fL Neutrophils (%) (Auto) 61.4 37.0-80.0 % Lymphocytes (%) (Auto) 23.6 10.0-50.0 % Monocytes (%) (Auto) 12.5 H 0.0-12.0 % Eosinophils (%) (Auto) 1.5 0.0-7.0 % Basophils (%) (Auto) 1.0 0.0-2.0 % Neutrophils # (Auto) 3.1 1.6-8.6 10 ^3/uL Lymphocytes # (Auto) 1.2 0.4-5.4 10 ^3/uL Monocytes # (Auto) 0.6 0-1.3 10 ^3/uL Eosinophils # (Auto) 0.1 0-0.8 10 ^3/uL Basophils # (Auto) 0 0-0.2 10 ^3/uL Nucleated Red Blood Cells 0.0 % Sodium Level 141 136-145 mmol/L Potassium Level 3.8 3.5-5.1 mmol/L Chloride Level 104 98-107 mmol/L Carbon Dioxide Level 28 20-31 mmol/L Anion Gap 9 5-15 Blood Urea Nitrogen 14 9-23 mg/dL Creatinine 1.00 0.700-1.30 mg/dL Glomerular Filtration Rate Calc 96 >90 mL/min BUN/Creatinine Ratio 14.0 10.0-20.0 Serum Glucose 136 H 74-106 mg/dL Calcium Level 9.7 8.7-10.4 mg/dL The CBC is within normal limits. The chemistry panel is within normal limits At this time, the patient is being discharged The patient will follow up with the primary care doctor The patient will return to the emergency department's the condition worsens The ultrasound of the left lower extremity shows: No sign of any DVT The patient is discharged Images Reviewed?: Images reviewed and evaluated by me Time of 1ST Reevaluation: 12:30 Reevaluation 1ST: Unchanged Patient Education/Counseling: Diagnosis, Treatment, Prognosis, Need For Follow Up Family Education/Counseling: No Family Present Departure 1 Departure Time of Disposition: 13:19 Impression: Primary Impression: Iron deficiency anemia secondary to blood loss (chronic) Additional Impression: Left leg pain Disposition: 01 HOME / SELF CARE / HOMELESS Condition: Fair Discharged With: Self Critical Care Note Critical Care Time?: No Stability Stability form required: No Heart Score Heart Score: Heart Score Response (Comments) Value History N/A 0 EKG N/A 0 Age N/A 0 Risk Factors N/A 0 Troponin N/A 0 Total 0 I personally scribed for TESSA MCFARLANE MD ([email or web address]) on 12/07/24 at 12:06. Electronically submitted by Taty Robbins ([employer] TESSA MCFARLANE MD Dec 07, 2024 12:06
[2024-12-07 12:33] LABS: Chloride 104 mmol/L (98-107); Potassium 3.8 mmol/L (3.5-5.1); Sodium 141 mmol/L (136-145)
[2024-12-07 12:34] LABS: Anion Gap 9 (5-15); Calcium 9.7 mg/dL (8.7-10.4); Carbon Dioxide 28 mmol/L (20-31)
[2024-12-07 12:39] LABS: BUN/Creatinine Ratio 14.0 (10.0-20.0); Blood Urea Nitrogen 14 mg/dL (9-23)
[2024-12-07 12:40] LABS: Glucose 136 mg/dL (74-106)
--- NOTE | 2024-12-07 12:49 | DVH ---
Left lower extremity venous duplex Clinical History: pain Comparison: None Findings: Duplex Doppler evaluation of the deep venous system of the left lower extremity from the common femor al vein to the popliteal vein including color Doppler and spectral/pulsed waveform analysis was perfo rmed. The common femoral vein demonstrates appropriate compressibility and waveform variability. There is compressibility/patency of the great saphenous vein at the proximal thigh. The femoral vein demonstrates appropriate compressibility and waveform variability. The deep femoral vein demonstrates appropriate compressibility and waveform variability. The popliteal vein demonstrates appropriate compressibility and waveform variability. There is normal compressibility at the tibioperoneal trunk. Impression: No left femoropopliteal venous thrombosis. If clinical concern/symptoms persist or worsen, short-interval follow-up study is suggested.
[2024-12-07 13:51] VITALS: BP 120/84; PULSE 67; RESP 18; O2SAT 97
== END 2024-12-07 13:58 | disposition home or self-care (01) ==
LOC: ER 11:28
DX: D50.0 Iron deficiency anemia secondary to blood loss (chronic) (principal); M25.562 Pain in left knee; D64.9 Anemia, unspecified; Z79.899 Other long term (current) drug therapy
CPT/HCPCS: 36415; 80048; 85025; 93971